=== PATIENT | female | born 1945 | race Caucasian/White ===

== ENCOUNTER 2017-04-30 09:16 | Day surgery (SDC) | payer OTHER ==
[~2017-04-30] VITALS: Ht 152.4 cm; Wt 52.0 kg
[2017-04-30] MEDS ORDERED: CARV12.579 PO (10:35)
[2017-04-30] MEDS ORDERED: AMLO-147 PO (10:35)
[2017-04-30] MEDS ORDERED: ASPI-664 PO (10:35)
[2017-04-30] MEDS ORDERED: HYDR12.58 PO (10:35)
[2017-04-30] MEDS ORDERED: MTF1000T PO (10:35)
[2017-04-30] MEDS ORDERED: ATOR40TA68 PO (10:35)
[2017-04-30] MEDS ORDERED: VALS80TA2 PO (10:35)
[2017-04-30 10:41] VITALS: Ht 152.4 cm; Wt 52.0 kg
[2017-04-30 11:03] VITALS: BP 170/81; PULSE 110; RESP 18
[2017-04-30] MEDS ORDERED: PROPOFOL 40 ML ONE (11:47)
--- NOTE | 2017-04-30 11:47 | OPPN ---
Date/Time of Note Date/Time of Note DATE: 04/30/17 TIME: 11:45 Operative Report Preoperative Diagnosis Abdominal pain Screening colonoscopy Postoperative Diagnosis Gastritis with erosions Internal and external hemorrhoids No colon neoplasm is identified Operation/Procedure Performed Esophagogastroduodenoscopy and biopsy Colonoscopy Surgeon see signature line licensed physical therapist assistant None Anesthesia: MAC Estimated blood loss: none Transfusion Required none Specimen Gastric mucosal biopsy Grafts/Implants none Complications none NILAY ALVAREZ MD Apr 30, 2017 11:47
--- NOTE | 2017-05-01 12:39 | GILP ---
DATE OF PROCEDURE: NAME OF PROCEDURES: 1. Esophagogastroduodenoscopy and biopsy. 2. Colonoscopy. SURGEON: Anabela Colón MD PREOPERATIVE DIAGNOSES: 1. Abdominal pain. 2. Change in bowel habit. 3. Screening colonoscopy. POSTOPERATIVE DIAGNOSES 1. Gastritis with erosions. 2. Gastric mucosal biopsies were taken for Helicobacter pylori test. 3. Colonoscopy all the way to the cecum. 4. Internal and external hemorrhoids. 5. No colon neoplasm was identified. INDICATION FOR THE PROCEDURE: Ms. Estela Renteria is a 72-year-old female patient who had upper abdominal pain, not responding to therapy. She also noticed a change in the bowel habit. She never had screening colonoscopy. The procedures and possible complications are well explained to the patient. She understood and con sented to the procedure. DESCRIPTION OF PROCEDURE: Under the influence of anesthesia, the gastroscope was carefully introduc ed into the esophagus and under direct vision, it was advanced to the stomach and through the pyloru s into the duodenal bulb and descending duodenum. FINDINGS: ESOPHAGUS: The patient had gastritis with erosions. Gastric mucosal biopsies were taken for H. pyl pushpa test. DUODENUM: Normal. The colonoscope was carefully introduced in the rectum and under direct vision, it was advanced all the way to the cecum. FINDINGS: The patient had internal and external hemorrhoids. No colon neoplasm was identified. She tolerated the procedures very well and there was no complication from the procedures. At the en d of the procedures, she was awake with stable vital signs and she was discharged home to the care o f her family. IMPRESSION: Please see postoperative diagnosis. PLAN: 1. Omeprazole 40 mg p.o. q.a.m. 2. Zantac 300 mg p.o. at bedtime. 3. Await histopathology reports. 4. Next screening colonoscopy in 10 years. Dictated By: ANABELA TORO/JOSÉ MIGUEL Conf#: [id number] DID#: [id number]
== END 2017-04-30 12:09 | disposition home or self-care (01) ==
LOC: GIL 09:16
PROVIDERS: ATTEND Internal Medicine Gastroenterology
DX: Z12.11 Encounter for screening for malignant neoplasm of colon (principal); E11.9 Type 2 diabetes mellitus without complications; I10 Essential (primary) hypertension; K76.0 Fatty (change of) liver, not elsewhere classified; E78.5 Hyperlipidemia, unspecified; R19.8 Other specified symptoms and signs involving the digestive system and abdomen; R10.9 Unspecified abdominal pain; K29.70 Gastritis, unspecified, without bleeding; K25.9 Gastric ulcer, unspecified as acute or chronic, without hemorrhage or perforation; K64.8 Other hemorrhoids; K64.4 Residual hemorrhoidal skin tags
CPT/HCPCS: 43239; 45378; 87081; Z7610